=== PATIENT | male | born 1960 | race Caucasian/White ===

== ENCOUNTER 2025-06-03 13:31 | Inpatient (IN) | payer MEDICARE, OTHER ==
[~2025-06-03] VITALS: Ht 172.7 cm; Wt 68.6 kg
[2025-06-03 14:39] VITALS: O2SAT 96
[2025-06-03] MEDS: LORazepam 2 MG/ML VIAL IM ONE (19:37)
[2025-06-03 20:37] LABS: COVID AG,FIA SOURCE NPH
[2025-06-03 20:53] LABS: PLATELET COUNT (AUTO) 237 K/uL (150-450); RED BLOOD CELL COUNT(AUTO) 4.77 MIL/uL (4.50-5.90); RED CELL DISTRIBUTION WIDTH 26.3 % (11.5-14.5); WHITE BLOOD COUNT (AUTO) 5.3 K/uL (4.5-11.0)
[2025-06-03] MEDS ORDERED: OLANZapine 5 MG RAPDIS TABLET PO PRN (21:00)
[2025-06-03] MEDS ORDERED: MAG HYDROX/ALUMINUM HYD/SIMETH ES 30 ML SUSPENSION UDCUP PO PRN (21:00)
[2025-06-03] MEDS ORDERED: LOPERAMIDE HCL 2 MG CAPSULE PO PRN ×2 (21:00)
[2025-06-03] MEDS ORDERED: MELATONIN 5 MG TABLET PO PRN (21:00)
[2025-06-03] MEDS ORDERED: MAGNESIUM HYDROXIDE SUSPENSION 30 ML UDCUP PO PRN (21:00)
[2025-06-03] MEDS ORDERED: GuaiFENesin/D-METHORPHAN [SUGAR-FREE] 200-20MG/10 ML SYRUP UDCUP PO PRN (21:00)
[2025-06-03] MEDS ORDERED: ZOLPIDEM TARTRATE 10 MG TABLET PO PRN (21:00)
[2025-06-03] MEDS: TUBERCULIN, PURIFIED PROTEIN DERIVATIVE 5 TU/0.1 ML SYRINGE ID ONE (21:00)
[2025-06-03 21:04] LABS: SARS-COV2 (COVID) ANTIGEN,FIA Negative (Negative)
[2025-06-03 21:18] LABS: RBC MORPHOLOGY COMMENT ABNORMAL RBC MORPH
[2025-06-03 21:25] LABS: ALCOHOL, BLOOD (SERUM) < 3 mg/dL (0-10)
[2025-06-03 21:53] LABS: CALCIUM, TOTAL 9.2 mg/dL (8.8-10.5); CREATININE 0.62 mg/dL (0.60-1.30); GLOMERULAR FILTR. RATE CALC > 60 mL/min (>60); GLUCOSE,RANDOM 120 mg/dL (70-110); SODIUM SERUM 139 mmol/L (136-145); UREA NITROGEN, BLOOD 14 mg/dL (7-18)
[2025-06-03 21:55] LABS: ASPARTATE AMINOTRANSFERASE 18 U/L (15-37); TOTAL PROTEIN, SERUM 7.7 g/dL (6.4-8.2)
[2025-06-03] MEDS: THIAMINE 100 MG TABLET PO SCH (22:33)
[2025-06-03] MEDS: DIVALPROEX SODIUM 500 MG ER TABLET PO SCH (22:33)
[2025-06-03] MEDS: CYANOCOBALAMIN 1,000 MCG/ML VIAL IM ONE (22:33)
[2025-06-03] MEDS: OLANZapine 5 MG RAPDIS TABLET PO SCH (22:33)
[2025-06-04 06:01] LABS: CHOL/HDL RATIO 2.5 (4.2-7.3); LDL CHOL (CALC.) 82 mg/dL (0-130)
[2025-06-04] MEDS: MULTIVITAMINS WITH MINERALS, THERAPEUTIC TABLET PO SCH (08:14)
[2025-06-04] MEDS: FOLIC ACID 1 MG TABLET PO SCH (08:14)
[2025-06-04 09:12] LABS: APPEARANCE,URINE HAZY (CLEAR); GLUCOSE, URINE (UA) NEGATIVE (NEGATIVE); LEUKOCYTE ESTERASE ,URINE LARGE (NEGATIVE); NITRATE,URINE NEGATIVE (NEGATIVE); OCCULT BLOOD,URINE NEGATIVE (NEGATIVE); PH,URINE DRUG SCREEN 6.5 (5.0-8.0); SPECIFIC GRAVITIY, URINE 1.014 (1.003-1.030)
[2025-06-04 09:19] LABS: ALCOHOL, URINE DRUG SCREEN NEGATIVE (NEGATIVE); AMPHET/METH SCREEN,URINE NEGATIVE (NEGATIVE); BARBITURATE SCREEN, URINE NEGATIVE (NEGATIVE); CANNABINOID SCREEN,URINE NEGATIVE (NEGATIVE); COCAINE SCREEN,URINE NEGATIVE (NEGATIVE); METHADONE SCREEN, URINE NEGATIVE (NEGATIVE)
[2025-06-04 18:21] VITALS: BP 128/82; PULSE 96; RESP 19; TEMP 98.6; O2SAT 96
[2025-06-04] MEDS: FLUTICASONE/SALMETEROL 250-50 MCG/INH INHALER [60] IH SCH (20:28)
[2025-06-04 23:13] VITALS: BP 95/71; PULSE 76; RESP 19; TEMP 98.1; O2SAT 96
[2025-06-05] MEDS: FERROUS SULFATE 325 MG EC TABLET PO SCH (06:41)
[2025-06-05 06:50] VITALS: BP 100/76; PULSE 85; RESP 18; TEMP 97.8; O2SAT 97
[2025-06-05] MEDS: ACETAMINOPHEN 325 MG TABLET PO PRN (06:55)
[2025-06-05] MEDS: ASCORBIC ACID 500 MG TABLET PO SCH (08:29)
[2025-06-05] MEDS: OMEPRAZOLE 20 MG CAPSULE PO SCH (08:30)
[2025-06-05] MEDS: NITROFURANTOIN MONOHYD/M-CRYST 100 MG CAPSULE [MACROBID] PO SCH (08:32)
[2025-06-05] MEDS: NICOTINE 21 MG/24 HOUR PATCH TD SCH (08:37)
[2025-06-05] MEDS ORDERED: MULTIVITAMINS WITH MINERALS, THERAPEUTIC TABLET PO SCH (09:00)
[2025-06-05 11:30] VITALS: BP 101/84; PULSE 95; RESP 19; TEMP 98.7; O2SAT 95
[2025-06-05] MEDS: NICOTINE POLACRILEX 2 MG LOZENGE PO PRN (14:02)
[2025-06-05 20:05] VITALS: BP 128/77; PULSE 60; RESP 18; TEMP 98.1; O2SAT 98
[2025-06-06 10:56] VITALS: BP 100/73; PULSE 74; RESP 16; TEMP 97.8; O2SAT 96
[2025-06-06 20:00] VITALS: BP 90/65; PULSE 88; RESP 16; TEMP 98; O2SAT 96
[2025-06-07 09:23] VITALS: BP 94/69; PULSE 84; RESP 16; TEMP 97.7; O2SAT 97
[2025-06-07] MEDS ORDERED: QUET25TA36 PO (15:31)
[2025-06-07] MEDS ORDERED: DIVA-153 PO (15:31)
[2025-06-07] MEDS ORDERED: MELA5TAB40 PO (15:31)
[2025-06-07 22:46] VITALS: RESP 19
[2025-06-08 08:43] VITALS: BP 99/87; PULSE 75; RESP 18; TEMP 97.4; O2SAT 99
[2025-06-08] MEDS: NICOTINE 21 MG/24 HOUR PATCH TD SCH (13:13)
[2025-06-08 22:28] VITALS: BP 92/61; PULSE 93; RESP 18; TEMP 98.3; O2SAT 98
[2025-06-09 08:52] VITALS: BP 109/78; PULSE 74; RESP 18; TEMP 96.8; O2SAT 97
[2025-06-09 15:20] LABS: APPEARANCE,URINE CLEAR (CLEAR); GLUCOSE, URINE (UA) NEGATIVE (NEGATIVE); LEUKOCYTE ESTERASE ,URINE NEGATIVE (NEGATIVE); NITRATE,URINE NEGATIVE (NEGATIVE); OCCULT BLOOD,URINE NEGATIVE (NEGATIVE); SPECIFIC GRAVITIY, URINE 1.013 (1.003-1.030)
[2025-06-09 15:25] LABS: PH,URINE DRUG SCREEN 7.0 (5.0-8.0)
[2025-06-09 15:27] LABS: AMPHET/METH SCREEN,URINE NEGATIVE (NEGATIVE); BARBITURATE SCREEN, URINE NEGATIVE (NEGATIVE); CANNABINOID SCREEN,URINE NEGATIVE (NEGATIVE); COCAINE SCREEN,URINE NEGATIVE (NEGATIVE); METHADONE SCREEN, URINE NEGATIVE (NEGATIVE)
[2025-06-09 15:30] LABS: ALCOHOL, URINE DRUG SCREEN NEGATIVE (NEGATIVE)
[2025-06-09 20:26] VITALS: BP 101/65; PULSE 91; RESP 17; TEMP 98.1; O2SAT 95
[2025-06-10] MEDS ORDERED: ASCO500 PO (09:27)
[2025-06-10 09:38] VITALS: BP 107/79; PULSE 82; RESP 16; TEMP 98; O2SAT 99
[2025-06-10] MEDS ORDERED: OMEP-148 PO (10:50)
[2025-06-10] MEDS ORDERED: FERR325T27 PO (10:50)
[2025-06-10] MEDS ORDERED: FLUT1BLS12 IH (10:50)
== END 2025-06-10 18:17 | DRG 885 ==
LOC: EMS 13:31 → 3EC 06-04 17:54
PROVIDERS: ADMIT Psychiatry & Neurology Psychiatry; ATTEND Psychiatry & Neurology Psychiatry
PROC: GZHZZZZ Group Psychotherapy (ICD-10-PCS; principal; 2025-06-04)
PROC: GZ58ZZZ Individual Psychotherapy, Cognitive-Behavioral (ICD-10-PCS; 2025-06-04)
PROC: GZ56ZZZ Individual Psychotherapy, Supportive (ICD-10-PCS; 2025-06-05)
DX: F20.0 Paranoid schizophrenia (principal); K21.9 Gastro-esophageal reflux disease without esophagitis; Z20.822 Contact with and (suspected) exposure to COVID-19; I48.91 Unspecified atrial fibrillation; J44.9 Chronic obstructive pulmonary disease, unspecified
CPT/HCPCS: 80053; 80061; 80164; 80178; 80307; 81001; 81003; 83036; 84439; 84443; 85025; 87086; 93005; 99285; G0480; J1200; J1630; J2060; J3420; J3535